=== PATIENT | female | born 1955 | race Caucasian/White ===

== ENCOUNTER 2017-03-09 11:13 | Inpatient (IN) | payer BC ==
[~2017-03-09] VITALS: Ht 172.7 cm; Wt 72.6 kg
[~2017-03-09 11:13] MED LIST: GABAPENTIN300 MG PO; LISINOPRIL10 MG PO; POTASSIUM CHLOR8 MEQ PO; PREDNISONE20 MG PO
[2017-03-09] MEDS ORDERED: SODIUM CHLORIDE 0.9% 1000ML 1,000 ML IV STA ×2 (11:35)
[2017-03-09] MEDS ORDERED: PANTOPRAZOLE 40 MG 10ML VIAL IV STA (11:35)
[2017-03-09] MEDS ORDERED: ONDANSETRON HCL INJ 2 MG/ML VIAL IV STA (11:35)
[2017-03-09] MEDS ORDERED: MORPHINE SULFATE 2 MG/ML SYR IV STA (11:35)
[2017-03-09 11:50] LABS: HEMATOCRIT 35.9 % (34.2-44.1); HEMOGLOBIN 12.7 g/dL (12.0-16.0); LYMPHOCYTES # (AUTO) 0.4 (1.0-3.2); LYMPHOCYTES % 12.1 % (18.0-39.1); MEAN CORPUSCULAR HEMOGLOBIN 31.1 pg (28-32); MEAN CORPUSCULAR HGB CONC 35.4 g/dL (31-35); MONOCYTES # (AUTO) 0.3 (0.2-0.8); MONOCYTES % 7.7 % (4.4-11.3); NEUTROPHILS # (AUTO) 2.9 (2.1-6.9); NEUTROPHILS % 79.4 % (38.7-80.0); PLATELET COUNT 90 x10e3/uL (140-360); RED BLOOD COUNT 4.08 x10e6/uL (3.6-5.1); RED CELL DISTRIBUTION WIDTH 14.6 % (11.7-14.4)
[2017-03-09 12:02] LABS: INR 0.88; PROTHROMBIN TIME 12.4 seconds (11.9-14.5)
[2017-03-09 12:03] LABS: PARTIAL THROMBOPLASTIN TIME 34.9 seconds (23.8-35.5)
[2017-03-09 12:13] LABS: ALANINE AMINOTRANSFERASE 22 IU/L (0-55); ALBUMIN 3.2 g/dL (3.5-5.0); ALBUMIN/GLOBULIN RATIO 1.1 (0.8-2.0); ALKALINE PHOSPHATASE 59 IU/L (40-150); ANION GAP 14.1 mmol/L (8-16); BLOOD UREA NITROGEN 29 mg/dL (7-26); BUN/CREATININE RATIO 17 (6-25); CALCIUM 7.9 mg/dL (8.4-10.2); CARBON DIOXIDE 23 mmol/L (22-29); CHLORIDE 93 mmol/L (98-107); CREATINE KINASE 314 IU/L (29-168); CREATININE, SERUM 1.66 mg/dL (0.57-1.11); EST GLOMERULAR FILTRATION RATE 32 ML/MIN (60-); GLUCOSE 90 mg/dL (74-118); LIPASE 30 U/L (8-78); MAGNESIUM 1.6 MG/DL (1.3-2.1); POTASSIUM 3.1 mmol/L (3.5-5.1); SODIUM 127 mmol/L (136-145)
--- NOTE | 2017-03-09 12:23 | Diagnostic Imaging Report ---
PROCEDURE: A single AP view of the chest. COMPARISON: 01/22/17 INDICATIONS: FLU LIKE SYMPTOMS, FALL FINDINGS: Lines/tubes: None. Lungs: The lungs are well inflated. Medial right lower lung field/infrahilar hazy opacification. Pleura: There is no pleural effusion or pneumothorax. Heart and mediastinum: The heart and the mediastinum are unremarkable. Bones: No acute bony abnormality. IMPRESSION: Medial right lower lung field/infrahilar hazy opacification, concerning for pneumonia. Dictated by: Jonny Reaves M.D. on 03/09/2017 at 12:32 Electronically approved by: Jonny Reaves M.D. on 03/09/2017 at 12:32
--- NOTE | 2017-03-09 12:31 | Diagnostic Imaging Report ---
PROCEDURE:HIPS BILAT TWO VWS(+/- PELVIS) INDICATION:Fall COMPARISON:None. FINDINGS: No acute fracture or dislocation of the hips. Well corticated lucent line through the right inferior pubic ramus, could be related to an old injury. Please correlate clinically. Pelvic phleboliths. Degenerative changes of the SI joints. CONCLUSION: No acute fracture or dislocation of the hips. Well corticated lucent line through the right inferior pubic ramus, could be related to an old injury or less likely nondisplaced acute fracture. Please correlate clinically. Dictated by: Jonny Reaves M.D. on 03/09/2017 at 12:39 Electronically approved by: Jonny Reaves M.D. on 03/09/2017 at 12:39
[2017-03-09 12:33] LABS: TROPONIN I 0.002 ng/mL (0-0.300)
[2017-03-09 12:40] LABS: ACETAMINOPHEN < 3 ug/mL (10-30); SALICYLATE < 5.0 mg/dL (0-30)
[2017-03-09] MEDS ORDERED: ASPIRIN 81 MG CHEW TAB PO ONE (12:45)
[2017-03-09] MEDS ORDERED: AZITHROMYCIN 500MG/NS 250 ML 250 ML IV ONE (13:00)
[2017-03-09] MEDS ORDERED: CEFTRIAXONE SOD 1 GM VIAL IM ONE (13:00)
[2017-03-09] MEDS ORDERED: POTASSIUM CHLORIDE 20MEQ/15ML UDC PO ONE (13:00)
[2017-03-09] MEDS: SODIUM CHLORIDE 0.9% 1000ML 1,000 ML IV SCH ×3 (13:03→20:45)
[2017-03-09] MEDS ORDERED: FENTANYL CITRATE/PF 100MCG/2 ML INJ IV ONE (13:15)
[2017-03-09 13:21] LABS: BILIRUBIN,URINE 1+ (NEGATIVE); KETONES,URINE NEGATIVE (NEGATIVE); LEUKOCYTE ESTERASE ,URINE TRACE (NEGATIVE); NITRITE,URINE NEGATIVE (NEGATIVE); URINE UROBILINOGEN 0.2 mg/dL (0.2 - 1)
[2017-03-09 13:23] LABS: CLARITY,URINE SL CLOUDY (CLEAR); COLOR,URINE YELLOW (YELLOW); PROTEIN,URINE DIPSTICK 1+ (NEGATIVE)
[2017-03-09] MEDS ORDERED: SODIUM CHLORIDE 0.9% 500ML 500 ML ONE (13:23)
[2017-03-09] MEDS ORDERED: SODIUM CHLORIDE 0.9% 500ML 500 ML IV ONE (13:30)
[2017-03-09 13:32] LABS: AMPHETAMINES SCREEN,URINE NEGATIVE (NEGATIVE); BENZODIAZEPINES SCREEN,URINE NEGATIVE (NEGATIVE); CANNABINOIDS SCREEN,URINE NEGATIVE (NEGATIVE); PHENCYCLIDINE SCREEN,URINE NEGATIVE (NEGATIVE)
[2017-03-09 13:52] LABS: BACTERIA,URINE MODERATE /HPF; EPITHELIAL CELLS,URINE FEW /LPF
[2017-03-09] MEDS: FAMOTIDINE 20 MG/2 ML VIAL IV SCH (14:05)
[2017-03-09] MEDS ORDERED: FENTANYL CITRATE/PF 100MCG/2 ML INJ IV PRN (14:45)
[2017-03-09] MEDS ORDERED: GABAPENTIN 300 MG CAP PO SCH (15:00)
[2017-03-09 16:00] VITALS: BP 123/62
[2017-03-09] MEDS: ACETAMINOPHEN 325 MG TAB PO PRN (17:20)
[2017-03-09] MEDS ORDERED: SOMA350 MG PO (18:16)
[2017-03-09] MEDS ORDERED: ALBUTEROL0.63 MG/3 (18:16)
[2017-03-09] MEDS ORDERED: PRILOSEC OTC20 MG PO (18:16)
[2017-03-09] MEDS ORDERED: QUININE SULFAT324 MG PO (18:16)
[2017-03-09 18:20] VITALS: BP 94/54
[2017-03-09] MEDS ORDERED: CARISOPRODOL 350 MG TAB PO PRN (19:00)
[2017-03-09 20:00] VITALS: BP 91/52
[2017-03-09] MEDS: GABAPENTIN 400 MG CAP PO SCH (20:10)
[2017-03-09] MEDS: POTASSIUM CHLORIDE 20 MEQ TAB CR PO SCH (21:00)
[2017-03-09 21:05] LABS: CREATINE KINASE MB 5.4 ng/mL (0.00-5.00); TROPONIN I 0.004 ng/mL (0-0.300)
[2017-03-10] VITALS: BP 118/68
[2017-03-10] MEDS: ACETAMINOPHEN 325 MG TAB PO PRN ×3 (00:27→16:54)
[2017-03-10] MEDS: FAMOTIDINE 20 MG/2 ML VIAL IV SCH ×2 (00:45→16:00)
[2017-03-10 04:00] VITALS: BP 101/53
[2017-03-10] MEDS: SODIUM CHLORIDE 0.9% 1000ML 1,000 ML IV SCH ×3 (04:45→21:16)
[2017-03-10] MEDS: GABAPENTIN 400 MG CAP PO SCH ×3 (05:02→21:11)
[2017-03-10 06:42] LABS: BASOPHILS % 0.5 % (0.0-1.0); EOSINOPHILS % 0.5 % (0.0-6.0); HEMATOCRIT 30.5 % (34.2-44.1); HEMOGLOBIN 10.8 g/dL (12.0-16.0); LYMPHOCYTES # (AUTO) 0.4 (1.0-3.2); LYMPHOCYTES % 18.6 % (18.0-39.1); MEAN CORPUSCULAR HGB CONC 35.4 g/dL (31-35); MEAN CORPUSCULAR VOLUME 87.6 fL (81-99); MONOCYTES # (AUTO) 0.2 (0.2-0.8); NEUTROPHILS # (AUTO) 1.6 (2.1-6.9); NEUTROPHILS % 72.9 % (38.7-80.0); PLATELET COUNT 89 x10e3/uL (140-360); RED BLOOD COUNT 3.48 x10e6/uL (3.6-5.1); RED CELL DISTRIBUTION WIDTH 14.7 % (11.7-14.4)
[2017-03-10 07:02] LABS: ALANINE AMINOTRANSFERASE 19 IU/L (0-55); ALBUMIN 2.6 g/dL (3.5-5.0); ALKALINE PHOSPHATASE 48 IU/L (40-150); ANION GAP 11.1 mmol/L (8-16); BLOOD UREA NITROGEN 12 mg/dL (7-26); BUN/CREATININE RATIO 14 (6-25); CALCIUM 7.4 mg/dL (8.4-10.2); CARBON DIOXIDE 21 mmol/L (22-29); CHLORIDE 105 mmol/L (98-107); CHOL/HDL RATIO 8.6 (3.0-3.6); CHOLESTEROL 155 MD/DL (0-199); CREATININE, SERUM 0.86 mg/dL (0.57-1.11); EST GLOMERULAR FILTRATION RATE > 60 ML/MIN (60-); GLUCOSE 90 mg/dL (74-118); HDL CHOLESTEROL 18 MG/DL (40-60); LDL CHOLESTEROL 102 MG/DL (60-130); MAGNESIUM 1.2 MG/DL (1.3-2.1); PHOSPHORUS 2.4 MG/DL (2.3-4.7); POTASSIUM 3.1 mmol/L (3.5-5.1); SODIUM 134 mmol/L (136-145); TRIGLYCERIDES 174 MG/DL (0-149)
[2017-03-10 07:33] LABS: CREATINE KINASE MB 5.5 ng/mL (0.00-5.00); TROPONIN I 0.011 ng/mL (0-0.300)
[2017-03-10 08:00] VITALS: BP 85/59
[2017-03-10] MEDS ORDERED: CYCLOBENZAPRINE HCL 10 MG TAB PO PRN (10:30)
[2017-03-10 12:00] VITALS: BP 109/68
--- NOTE | 2017-03-10 12:23 | Diagnostic Imaging Report ---
EXAM: XR CHEST 1 VIEW DATE: 03/10/2017 11:28 AM INDICATION: Short of breath COMPARISON: 03/09/2017 and 02/01/2017 FINDINGS: Lines and Tubes: Right PICC with tip overlying SVC. Heart and Mediastinum: No acute findings. Lungs and Pleura: Masslike opacity right hilar region, more conspicuous. No pneumothorax. Bones and Soft Tissues: No acute findings. IMPRESSION: 1. Masslike opacity right hilar region measuring a proximally 66 x 54 mm, more conspicuous than previous studies. Correlation with history recommended. Given the development since 02/01/2017, pneumonia favored. Close follow-up recommended to document resolution. CT could be obtained for further evaluation if indicated. Signed by: Dr. Cy Olivares MD on 03/10/2017 12:20 PM
--- NOTE | 2017-03-10 12:37 | Diagnostic Imaging Report ---
EXAM: CT PELVIS WO DATE: 03/10/2017 10:14 AM INDICATION: Pain COMPARISON: 03/09/2017 radiographs Technique: CT pelvis was obtained without contrast. Images reviewed in the axial, sagittal, and coronal planes. FINDINGS: Moderate aortoiliac vascular calcifications are present. Urinary bladder is partially decompressed, but unremarkable. Uterus and adnexa are poorly evaluated on nonenhanced CT. Visualized bowel unremarkable. Appendix is not inflamed. No free fluid or suspicious adenopathy identified in the pelvis. Mild to moderate degenerative changes are present in the SI joints, L5-S1, and hips. There is a nondisplaced fracture of the medial aspect of the right inferior pubic ramus. Degenerative changes present pubic symphysis. IMPRESSION: Nondisplaced fracture right inferior pubic ramus. Other chronic findings as above. Signed by: Dr. Cy Olivares MD on 03/10/2017 12:34 PM
[2017-03-10] MEDS: CARISOPRODOL 350 MG TAB PO SCH ×2 (13:00→21:11)
[2017-03-10] MEDS: POTASSIUM CHLORIDE 20 MEQ TAB CR PO SCH ×2 (13:00→21:11)
[2017-03-10] MEDS ORDERED: AZITHROMYCIN 500MG/NS 250 ML 250 ML IV SCH ×2 (13:00→18:00)
[2017-03-10] MEDS: CEFTRIAXONE SOD 1 GM VIAL IV SCH (15:57)
[2017-03-10 16:00] VITALS: BP 110/63
[2017-03-10] MEDS ORDERED: ZOLPIDEM TARTRATE 5 MG TAB PO PRN (16:45)
[2017-03-10] MEDS: ENOXAPARIN SOD INJ 40 MG/0.4 ML SYR SC SCH (17:00)
[2017-03-10] MEDS: FLUCONAZOLE 100 MG TAB PO SCH (18:17)
[2017-03-10] MEDS: ONDANSETRON HCL INJ 2 MG/ML VIAL IV PRN (18:50)
[2017-03-10] MEDS: QUININE SULFATE 324 MG PO SCH (21:00)
[2017-03-10] MEDS: DULOXETINE HCL 30 MG DELAYED RELEASE PO SCH (21:00)
[2017-03-11] VITALS: BP 90/60
[2017-03-11] MEDS: CEFTRIAXONE SOD 1 GM VIAL IV SCH ×2 (01:02→12:50)
[2017-03-11] MEDS: FAMOTIDINE 20 MG/2 ML VIAL IV SCH ×2 (04:15→17:59)
[2017-03-11] MEDS: SODIUM CHLORIDE 0.9% 1000ML 1,000 ML IV SCH ×3 (04:45→20:45)
[2017-03-11] MEDS: GABAPENTIN 400 MG CAP PO SCH ×3 (05:37→22:20)
[2017-03-11 08:00] VITALS: BP 96/63
[2017-03-11] MEDS: POTASSIUM CHLORIDE 20 MEQ TAB CR PO SCH ×2 (09:00→22:20)
[2017-03-11] MEDS: DULOXETINE HCL 30 MG DELAYED RELEASE PO SCH ×2 (09:00→21:00)
[2017-03-11] MEDS: PREDNISONE 20 MG TAB PO SCH (09:50)
[2017-03-11] MEDS: PANTOPRAZOLE SOD 40 MG TABEC PO SCH (09:50)
[2017-03-11] MEDS: CARISOPRODOL 350 MG TAB PO SCH ×3 (09:50→22:20)
[2017-03-11] MEDS: FLUCONAZOLE 100 MG TAB PO SCH (09:50)
[2017-03-11 12:00] VITALS: BP 95/62
[2017-03-11] MEDS: VANCOMYCIN 1GM/NS 250 ML 250 ML IV SCH (12:57)
--- NOTE | 2017-03-11 13:56 | Progress Note ---
DATE: March 11, 2017 MEDICINE PROGRESS NOTE TIME OF SERVICE: 6:43 a.m. SUBJECTIVE: Overnight continues to have fever and low blood pressure. Also continues to have leukopenia. REVIEW OF SYSTEMS: Denies any dizziness, chest pain. VITAL SIGNS: Reviewed. PHYSICAL EXAMINATION GENERAL APPEARANCE: A tired-appearing woman resting in bed. HEENT: Anicteric. CARDIOVASCULAR: Normal S1/S2. LUNGS: She has slightly reduced breath sounds at bases. ABDOMEN: Soft, nontender, nondistended. EXTREMITIES: No edema or calf tenderness. NEUROLOGICALLY: Alert and oriented x3. Moving all extremities, but the pelvic site is tender. LABS: Reviewed. MEDICATIONS: Reviewed. ASSESSMENT: This is a 62-year-old woman. 1. Sepsis. 2. Right lung pneumonia. 3. Right pelvic fracture. 4. Acute kidney injury. 5. Hypokalemia. 6. Hyponatremia. 7. Urinary tract infection and enterococcus. 8. Neuropathy. 9. Chronic pain disorder. PLAN 1. Continue IV ceftriaxone and azithromycin. 2. Add IV vancomycin for enterococcus and follow up sensitivity. 3. Continue gabapentin. 4. Continue fluconazole. 5. Continue physical therapy. 6. Continue Lovenox prophylaxis and PPI. 7. Continue prednisone and other medication regimen. 8. Keep in hospital today and follow up cultures. Job#: [id number] EV
[2017-03-11] MEDS: ONDANSETRON HCL INJ 2 MG/ML VIAL IV PRN (14:20)
[2017-03-11 16:00] VITALS: BP 114/79
[2017-03-11] MEDS: ENOXAPARIN SOD INJ 40 MG/0.4 ML SYR SC SCH (17:00)
[2017-03-11 20:00] VITALS: BP 148/96
[2017-03-11] MEDS: QUININE SULFATE 324 MG PO SCH (21:00)
[2017-03-12 00:04] VITALS: BP 132/86
[2017-03-12] MEDS: CEFTRIAXONE SOD 1 GM VIAL IV SCH ×3 (00:46→14:32)
[2017-03-12] MEDS: FAMOTIDINE 20 MG/2 ML VIAL IV SCH ×2 (04:00→17:09)
[2017-03-12] MEDS: SODIUM CHLORIDE 0.9% 1000ML 1,000 ML IV SCH ×2 (04:45→12:45)
[2017-03-12] MEDS: GABAPENTIN 400 MG CAP PO SCH ×2 (06:15→14:19)
[2017-03-12] MEDS: VANCOMYCIN 1GM/NS 250 ML 250 ML IV SCH (06:19)
[2017-03-12 08:17] VITALS: BP 142/94
[2017-03-12] MEDS ORDERED: KEFLEX500 MG PO (08:20)
[2017-03-12] MEDS ORDERED: AZITHROMYCIN500 MG PO (08:24)
[2017-03-12] MEDS: FLUCONAZOLE 100 MG TAB PO SCH (08:56)
[2017-03-12] MEDS: CARISOPRODOL 350 MG TAB PO SCH ×2 (08:56→14:41)
[2017-03-12] MEDS: PREDNISONE 20 MG TAB PO SCH (08:56)
[2017-03-12] MEDS: PANTOPRAZOLE SOD 40 MG TABEC PO SCH (08:56)
[2017-03-12] MEDS: POTASSIUM CHLORIDE 20 MEQ TAB CR PO SCH (08:56)
[2017-03-12] MEDS ORDERED: HYDROCHLOROTHIAZIDE 25 MG TAB PO SCH (09:00)
[2017-03-12] MEDS: DULOXETINE HCL 30 MG DELAYED RELEASE PO SCH (09:00)
[2017-03-12] MEDS ORDERED: LISINOPRIL 10 MG TAB PO SCH (09:00)
[2017-03-12 09:11] LABS: BASOPHILS % 0.3 % (0.0-1.0); EOSINOPHILS % 0.3 % (0.0-6.0); HEMATOCRIT 31.1 % (34.2-44.1); HEMOGLOBIN 10.8 g/dL (12.0-16.0); LYMPHOCYTES # (AUTO) 0.8 (1.0-3.2); MEAN CORPUSCULAR HEMOGLOBIN 30.9 pg (28-32); MEAN CORPUSCULAR HGB CONC 34.7 g/dL (31-35); MEAN CORPUSCULAR VOLUME 88.9 fL (81-99); MONOCYTES # (AUTO) 0.1 (0.2-0.8); MONOCYTES % 4.8 % (4.4-11.3); NEUTROPHILS % 66.6 % (38.7-80.0); PLATELET COUNT 96 x10e3/uL (140-360); RED CELL DISTRIBUTION WIDTH 14.9 % (11.7-14.4)
[2017-03-12 10:14] LABS: ANION GAP 9.2 mmol/L (8-16); BLOOD UREA NITROGEN 5 mg/dL (7-26); BUN/CREATININE RATIO 7 (6-25); CALCIUM 7.7 mg/dL (8.4-10.2); CARBON DIOXIDE 25 mmol/L (22-29); CHLORIDE 107 mmol/L (98-107); CREATININE, SERUM 0.75 mg/dL (0.57-1.11); EST GLOMERULAR FILTRATION RATE > 60 ML/MIN (60-); GLUCOSE 99 mg/dL (74-118); MAGNESIUM 1.5 MG/DL (1.3-2.1); PHOSPHORUS 1.7 MG/DL (2.3-4.7); POTASSIUM 3.2 mmol/L (3.5-5.1); SODIUM 138 mmol/L (136-145)
[2017-03-12] MEDS ORDERED: POTASSIUM PHOSPHATE 20 MM in SODIUM CHLORIDE 0.9% 250ML 250 ML IV ONE (11:30)
[2017-03-12] MEDS ORDERED: POTASSIUM CHLORIDE 20 MEQ TAB CR PO ONE (11:30)
[2017-03-12 11:52] VITALS: BP 131/82
[2017-03-12] MEDS ORDERED: CEFTRIAXONE SOD 1 GM VIAL IV ONE (15:00)
[2017-03-12 16:08] VITALS: BP 146/94
[2017-03-12] MEDS: ONDANSETRON HCL INJ 2 MG/ML VIAL IV PRN (16:29)
[2017-03-12] MEDS: ENOXAPARIN SOD INJ 40 MG/0.4 ML SYR SC SCH (17:00)
--- NOTE | 2017-03-13 07:34 | Discharge Summary ---
PRINCIPAL DIAGNOSES 1. Sepsis. 2. Right lung pneumonia. 3. Right pelvic fracture. 4. Acute kidney injury. 5. Urinary tract infection with enterococcus, sensitive to penicillin. 6. Hypokalemia. 7. Hyponatremia. 8. Neuropathy. SECONDARY DIAGNOSIS: Chronic pain disorder. CHIEF COMPLAINT: Fever and low blood pressure. HISTORY OF PRESENT ILLNESS: A 62-year-old woman with signs of sepsis. Refer to the H and P for further details. HOSPITAL COURSE: The patient was septic with right lung pneumonia and right pelvic fracture. She had acute kidney injury, hypokalemia and hyponatremia. Urinary tract infection with enterococcus. She is doing better. She did have a right pelvic fracture, and will need physical therapy at home. DISCHARGE MEDICATIONS: Per electronic medical record. FOLLOWUP: Primary care doctor in 1 week. Follow up with home health services. DISCHARGE CONDITION: Stable and improving. DISCHARGE LOCATION: Home with physical therapy. LIDIA EVANGELISTA MD Job#: [id number] DE
== END 2017-03-12 19:00 | disposition home or self-care (01) | DRG 871 ==
LOC: ER 11:13 → ERHOLD 13:07 → MED/SURG2 15:08
PROVIDERS: ADMIT Internal Medicine; ATTEND Internal Medicine
PROC: 02HV33Z Insertion of Infusion Device into Superior Vena Cava, Percutaneous Approach (ICD-10-PCS; principal; 2017-03-10)
DX: A41.9 Sepsis, unspecified organism (principal); J18.9 Pneumonia, unspecified organism; N17.9 Acute kidney failure, unspecified; E87.1 Hypo-osmolality and hyponatremia; N39.0 Urinary tract infection, site not specified; M84.454A Pathological fracture, pelvis, initial encounter for fracture; B95.2 Enterococcus as the cause of diseases classified elsewhere; E87.6 Hypokalemia; I10 Essential (primary) hypertension; E78.5 Hyperlipidemia, unspecified; Z79.52 Long term (current) use of systemic steroids
CPT/HCPCS: 36415; 36569; 71010; 72192; 73521; 80048; 80053; 80061; 80307; 80320; 80329; 81001; 82550; 82553; 83690; 83735; 83880; 84100; 84443; 84484; 85025; 85610; 85730; 87040; 87086; 87186; 87400; 93005; 99284; J0456; J0696; J1650; J2405; J3370; J7030; J7040; J7050